=== PATIENT | female | born 1950 | race African-American/Black ===

== ENCOUNTER → 2017-06-28 | Day surgery (SDC) | payer OTHER ==
--- NOTE | 2017-06-28 10:11 | OP ---
DATE OF OPERATION: 06/28/2017 PREOPERATIVE DIAGNOSIS: Abnormal right mammography. POSTOPERATIVE DIAGNOSIS: Abnormal right mammography. PROCEDURE: Right breast stereotactic needle biopsy with clip. SURGEON: Neelam Polanco MD ANESTHESIA: Local. COMPLICATIONS: None. This was a sterile procedure. INDICATION FOR PROCEDURE: The patient presented with screening mammography that noted increasing microcalcifications in the upper outer, posterior right breast. Recommendation was needle biopsy for definitive diagnosis. The procedure was discussed with her including need for a clip. PROCEDURE IN DETAIL: The patient was brought to [facility] in [place], laid prone on the Lor[place] table. Using the lateral approach, the calcifications in the upper outer right breast posteriorly were identified. A sterile prep was obtained. A target was chosen. There was a positive stroke margin. Using Betadine and 1% lidocaine, a 10-gauge Suros device was used to take several cores in this area. The cores showed calcification within them. These were handled using the calcification protocol. A clip was deployed in the area. Hemostasis was assured with direct pressure. The incision was closed with Steri-Strips. She tolerated the procedure well and left the breast room in good condition. NEELAM POLANCO M.D. JUAN [id number]
--- NOTE | 2017-06-29 11:12 | PATH ---
Surgical Pathology Report Patient Name: WESLEY LANDIS [facility]. Rec. #: [id number] /Age/Gender: 1950 (Age: 66) / F Account: [id number] Location: [facility] Taken: 06/28/2017 Received: 06/28/2017 Reported: 06/29/2017 Physicians: Neelam Cook M.D. Specimen(s) Received A: RIGHT BREAST SPECIMEN WITH CALCIFICATIONS B: RIGHT BREAST SPECIMEN WITHOUT CALCIFICATIONS Clinical History Nonpalpable lesion Mammographic findings: Microcalcification, suspicious Final Diagnosis A. RIGHT BREAST, WITH CALCIFICATION, STEREOTACTIC NEEDLE CORE BIOPSY: SCLEROSED FIBROADENOMA AND STROMAL CALCIFICATION. B. RIGHT BREAST, WITHOUT CALCIFICATION, STEREOTACTIC NEEDLE CORE BIOPSY: BENIGN BREAST TISSUE. Electronically Signed Shahbaz Vergara M.D. Gross Description A. Received in formalin labeled "right breast with calcifications," are 2 hancock-yellow, cylindrical portions of fibroadipose tissue measuring 2.5 and 3.5 cm in length and averaging 0.3 cm in diameter. The specimens are submitted in toto in one cassette. B. Received in formalin labeled "right breast without calcifications," is a 2.3 x 1.8 x 0.3 cm aggregate of multiple hancock-yellow, irregular to cylindrical portions of fibroadipose tissue. The formalin is filtered and the specimen is entirely submitted in one cassette. Time to formalin fixation: 3 minutes Total formalin fixation time: Approximately 9 hours. /06/28/201706/28/2017
== END | disposition home or self-care (01) ==
LOC: FMAMMOTONE 06:59
PROVIDERS: ATTEND Surgery
PROC: 0HBT3ZX Excision of Right Breast, Percutaneous Approach, Diagnostic (ICD-10-PCS; principal; 2017-06-28)
DX: D24.1 Benign neoplasm of right breast (principal); R92.8 Other abnormal and inconclusive findings on diagnostic imaging of breast
CPT/HCPCS: 19081; 87899; 88305-TC; A4648